=== PATIENT | female | born 1990 | race Caucasian/White ===

== ENCOUNTER 2017-12-24 14:07 | Emergency (ER) | payer OTHER ==
[~2017-12-24] VITALS: Ht 154.9 cm; Wt 81.6 kg
== END 2017-12-24 16:58 | disposition home or self-care (01) ==
LOC: ER 14:07
DX: S90.111A Contusion of right great toe without damage to nail, initial encounter (principal); S99.822A Other specified injuries of left foot, initial encounter; W01.198A Fall on same level from slipping, tripping and stumbling with subsequent striking against other object, initial encounter; Y93.89 Activity, other specified; Y92.22 Religious institution as the place of occurrence of the external cause; Y99.8 Other external cause status